=== PATIENT | male | born 2000 | race African-American/Black ===

== ENCOUNTER 2023-10-21 05:52 | Emergency (ER) | payer MEDICAID ==
[~2023-10-21] VITALS: Ht 170.2 cm; Wt 63.2 kg
[~2023-10-21 05:52] MED LIST: ALBUPOW26
[2023-10-21 06:55] LABS: Basophils # (auto) 0.1 10 ^3/uL (0-0.2); Basophils % (auto) 0.6 % (0.0-2.0); Eosinophils # (auto) 0 10 ^3/uL (0-0.8); Hematocrit 42.7 % (41.0-53.0); Hemoglobin 14.5 g/dL (13.5-17.5); Lymphocytes # (auto) 1.5 10 ^3/uL (0.4-5.4); Lymphocytes % (auto) 12.5 % (10.0-50.0); Mean Corpuscular Hemoglobin 30.2 pg (28.0-32.0); Mean Corpuscular Hgb Conc. 33.9 g/dL (32.0-36.0); Mean Corpuscular Volume 89.3 fL (80.0-100.0); Monocytes # (auto) 1.8 10 ^3/uL (0-1.3); Monocytes % (auto) 15.3 % (0.0-12.0); Neutrophils # (auto) 8.4 10 ^3/uL (1.6-8.6); Neutrophils % (auto) 71.6 % (37.0-80.0); Nucleated Red Blood Cells % 0.1 %; Red Blood Cells 4.78 10^6/uL (4.5-5.90); Red Cell Distribution Width 12.4 % (11.8-14.3); White Blood Cell 11.7 10^3/uL (4.4-10.8)
[2023-10-21 07:07] LABS: Alanine Aminotransferase 40 U/L (7-40); Albumin 5.5 g/dL (3.2-4.8); Alkaline Phosphatase 68 U/L (46-116); Anion Gap 12 (5-15); Aspartate Aminotransferase 49 U/L (13-40); BUN/Creatinine Ratio 20.3 (10.0-20.0); Blood Urea Nitrogen 28 mg/dL (9-23); Calcium 10.7 mg/dL (8.7-10.4); Carbon Dioxide 26 mmol/L (20-30); Chloride 97 mmol/L (98-107); Glucose 104 mg/dL (74-106); INR 1.09 (0.9-1.15); Lipase 36 U/L (12-53); Magnesium 2.2 mg/dL (1.6-2.6); Potassium 3.2 mmol/L (3.5-5.1); Prothrombin Time 11.4 sec (9.3-11.8); Sodium 135 mmol/L (136-145)
[2023-10-21 07:08] LABS: Bilirubin, Total 1.9 mg/dL (0.2-1.0); Total Protein 9.2 g/dL (5.7-8.2)
[2023-10-21] MEDS: PROCHLORPERAZINE EDISYLATE 5 MG/ML 2ML VIAL IV ONE (08:40)
[2023-10-21] MEDS: PANTOPRAZOLE 40 MG/10 ML VIAL INJ IV ONE (08:40)
[2023-10-21] MEDS: METOCLOPRAMIDE HCL 5MG/ml INJ 2ml VIAL IV ONE (08:42)
[2023-10-21 08:43] VITALS: O2SAT 100
[2023-10-21] MEDS: MORPHINE SULFATE INJ 2 MG/ml SYRG IV ONE (08:43)
[2023-10-21 09:13] VITALS: BP 111/70; PULSE 74; RESP 19
[2023-10-21] MEDS ORDERED: PANT40TA2 PO (09:23)
[2023-10-21] MEDS ORDERED: ZOFR4T PO (09:23)
[2023-10-21] MEDS: POTASSIUM CHL 20 Meq TABLET PO ONE (09:52)
== END 2023-10-21 10:24 | disposition home or self-care (01) ==
LOC: ER 05:52
DX: F12.90 Cannabis use, unspecified, uncomplicated (principal); R11.2 Nausea with vomiting, unspecified; R10.13 Epigastric pain; J45.909 Unspecified asthma, uncomplicated; Z79.899 Other long term (current) drug therapy
CPT/HCPCS: 36415; 74176; 80053; 83690; 83735; 84484; 85025; 85610; 85730; 96374; 96375; 99285; C9113; J0780; J2270; J2765